=== PATIENT | male | born 2000 | race Caucasian/White ===

== ENCOUNTER 2020-08-16 21:57 | Inpatient (IN) ==
[2020-08-16] MEDS ORDERED: SODIUM CHLORIDE 0.9% 1,000 ML IV STA (22:32)
[2020-08-16] MEDS ORDERED: ONDANSETRON 4 MG/2 ML VIAL IV ONE ×2 (22:38→23:35)
[2020-08-16] MEDS ORDERED: KETOROLAC 30 MG/1 ML VIAL IV STA (22:38)
[2020-08-16 23:21] LABS: Albumin 4.3 G/DL (3.4-5.0); Bilirubin,Total 1.1 MG/DL (0.2-1.0); Calcium 8.3 MG/DL (8.5-10.1); Osmolality,Calculated 275.5 MOS/KG (273-304); Potassium 3.4 MMOL/L (3.5-5.1); Total Protein 7.8 G/DL (6.4-8.2)
[2020-08-16 23:24] LABS: Basophils % 0.2 % (0.0-0.8); Eosinophils # 0.1 10*3/uL (0.0-0.87); Eosinophils % 0.5 % (0.00-10.9); Hematocrit 45.9 VOL% (42.0-52.0); Hemoglobin 16.1 GM/DL (14.0-18.0); Immature Granulocytes % 0.4 %; Immature Granulocytes Absolute 0.06 #; Lymphocytes # 1.5 10*3/uL (1.4-4.0); Lymphocytes % 10.7 % (21.2-54.2); Mean Corpuscular HGB Conc 35.1 GM/DL (32-36); Mean Corpuscular Volume 93.5 FL (87-102); Mean Platelet Volume 9.7 FL (9.6-12.0); Monocytes % 6.2 % (1.7-12.7); Platelet Count 233 T/CUMM (130-400); Red Blood Count 4.91 MC/CUMM (3.8-5.5); Red Cell Distribution Width 11.2 % (9.3-17.3); White Blood Count 13.7 T/CUMM (4-12)
[2020-08-16] MEDS ORDERED: MORPHINE 4 MG/1 ML VIAL IV STA (23:35)
[2020-08-17] MEDS ORDERED: DEXTROSE 50% 25 GM/50 ML VIAL IV PRN (00:06)
[2020-08-17] MEDS ORDERED: ONDANSETRON 4 MG/2 ML VIAL IV PRN (00:06)
[2020-08-17] MEDS ORDERED: SODIUM CHLORIDE 0.9% 1,000 ML IV STA (00:06)
[2020-08-17] MEDS ORDERED: NICOTINE 21 MG/24 HR PATCH TRANSDERM PRN (00:06)
[2020-08-17] MEDS ORDERED: ACETAMINOPHEN 325 MG TABLET PO PRN (00:06)
[2020-08-17] MEDS ORDERED: MORPHINE 4 MG/1 ML VIAL IV PRN (00:06)
[2020-08-17] MEDS ORDERED: GLUCAGON 1 MG VIAL IM PRN (00:06)
[2020-08-17 00:28] LABS: Risk Ratio 3.12; VLDL CHOLESTEROL 98.2 MG/DL
[2020-08-17] MEDS ORDERED: SODIUM CHLORIDE 0.9% 1,000 ML IV SCH (00:30)
[2020-08-17] MEDS ORDERED: PIPERACILLIN/TAZOBACTAM 3,375 MG in SODIUM CHLORIDE 0.9% 100 ML IV STA (00:54)
[2020-08-17] MEDS ORDERED: PANTOPRAZOLE 40 MG VIAL IV STA (01:07)
[2020-08-17] MEDS ORDERED: HYDROmorphone 2 MG/1 ML VIAL IV STA (01:07)
[2020-08-17] MEDS ORDERED: PROMETHAZINE 25 MG/1 ML VIAL IM STA (01:07)
[2020-08-17] MEDS: HYDROmorphone 2 MG/1 ML VIAL IV PRN ×9 (03:53→22:28)
[2020-08-17] MEDS ORDERED: HYDROmorphone 2 MG/1 ML VIAL IV SCH (04:00)
[2020-08-17] MEDS ORDERED: HYDROmorphone 2 MG/1 ML VIAL IV PRN (08:25)
[2020-08-17] MEDS: PIPERACILLIN/TAZOBACTAM 3,375 MG in SODIUM CHLORIDE 0.9% 100 ML IV SCH ×2 (10:15→17:26)
[2020-08-17] MEDS: SODIUM CHLORIDE 0.9% 1,000 ML IV SCH (10:23)
[2020-08-17 10:46] LABS: Basophils % 0.1 % (0.0-0.8); Eosinophils % 0.2 % (0.00-10.9); Hematocrit 40.9 VOL% (42.0-52.0); Hemoglobin 14.4 GM/DL (14.0-18.0); Immature Granulocytes % 0.6 %; Immature Granulocytes Absolute 0.09 #; Lymphocytes # 0.8 10*3/uL (1.4-4.0); Lymphocytes % 4.8 % (21.2-54.2); Mean Corpuscular HGB Conc 35.2 GM/DL (32-36); Mean Corpuscular Volume 94.5 FL (87-102); Mean Platelet Volume 9.5 FL (9.6-12.0); Monocytes % 6.9 % (1.7-12.7); Neutrophils % 87.4 % (38.7-73.9); Platelet Count 182 T/CUMM (130-400); Red Blood Count 4.33 MC/CUMM (3.8-5.5); Red Cell Distribution Width 11.1 % (9.3-17.3); White Blood Count 15.7 T/CUMM (4-12)
[2020-08-17 11:07] LABS: Lymphocytes 2 % (20-55); Platelet Estimate Adequate; Segmented Neutrophils 95 % (50-85); Total Cells Counted 100
[2020-08-17 11:14] LABS: Albumin 3.6 G/DL (3.4-5.0); Bilirubin,Total 4.6 MG/DL (0.2-1.0); Calcium 7.9 MG/DL (8.5-10.1); Osmolality,Calculated 271.7 MOS/KG (273-304); Potassium 3.8 MMOL/L (3.5-5.1); Total Protein 6.6 G/DL (6.4-8.2)
[2020-08-17] MEDS: THIAMINE INJ 100 MG, FOLIC ACID INJ 1 MG, MAGNESIUM SULF INJ 2 GM, MULTIVITAMIN INJ 10 ... IV SCH (12:48)
[2020-08-17 22:25] LABS: Barbiturates Screen,Urine Negative (Negative); Benzodiazepines Screen,Urine Negative (Negative); Cannabinoid Screen,Urine Positive (Negative); Opiate Screen,Urine Positive (Negative); Phencyclidine Screen,Urine Negative (Negative)
[2020-08-17] MEDS ORDERED: ALUMINUM/MAGNES/SIMETH MAX STR 30 ML UDCUP PO PRN (23:19)
[2020-08-18] MEDS: PIPERACILLIN/TAZOBACTAM 3,375 MG in SODIUM CHLORIDE 0.9% 100 ML IV SCH ×3 (00:28→22:45)
[2020-08-18] MEDS: HYDROmorphone 2 MG/1 ML VIAL IV PRN ×3 (04:34→23:37)
[2020-08-18] MEDS: SODIUM CHLORIDE 0.9% 1,000 ML IV SCH ×4 (04:36→21:48)
[2020-08-18 05:55] LABS: Basophils % 0.2 % (0.0-0.8); Eosinophils # 0.3 10*3/uL (0.0-0.87); Eosinophils % 2.7 % (0.00-10.9); Hematocrit 37.5 VOL% (42.0-52.0); Hemoglobin 13.7 GM/DL (14.0-18.0); Immature Granulocytes % 0.3 %; Immature Granulocytes Absolute 0.04 #; Lymphocytes # 1.8 10*3/uL (1.4-4.0); Lymphocytes % 14.3 % (21.2-54.2); Mean Corpuscular HGB Conc 36.5 GM/DL (32-36); Mean Corpuscular Volume 91.7 FL (87-102); Mean Platelet Volume 10.4 FL (9.6-12.0); Monocytes % 6.7 % (1.7-12.7); Neutrophils % 75.8 % (38.7-73.9); Platelet Count 144 T/CUMM (130-400); Red Blood Count 4.09 MC/CUMM (3.8-5.5); Red Cell Distribution Width 11.2 % (9.3-17.3); White Blood Count 12.6 T/CUMM (4-12)
[2020-08-18 06:22] LABS: Bilirubin,Total 3.8 MG/DL (0.2-1.0); Calcium 8.2 MG/DL (8.5-10.1); Osmolality,Calculated 263.2 MOS/KG (273-304); Potassium 3.5 MMOL/L (3.5-5.1); Total Protein 6.1 G/DL (6.4-8.2)
[2020-08-18] MEDS: THIAMINE INJ 100 MG, FOLIC ACID INJ 1 MG, MAGNESIUM SULF INJ 2 GM, MULTIVITAMIN INJ 10 ... IV SCH (16:12)
[2020-08-19] MEDS: PIPERACILLIN/TAZOBACTAM 3,375 MG in SODIUM CHLORIDE 0.9% 100 ML IV SCH ×2 (04:43→06:15)
[2020-08-19 05:20] LABS: Basophils % 0.4 % (0.0-0.8); Eosinophils # 0.4 10*3/uL (0.0-0.87); Hematocrit 32.8 VOL% (42.0-52.0); Immature Granulocytes % 0.5 %; Immature Granulocytes Absolute 0.04 #; Lymphocytes # 2.1 10*3/uL (1.4-4.0); Lymphocytes % 27.7 % (21.2-54.2); Mean Corpuscular HGB Conc 36.6 GM/DL (32-36); Mean Corpuscular Volume 92.1 FL (87-102); Mean Platelet Volume 10.2 FL (9.6-12.0); Monocytes % 7.3 % (1.7-12.7); Neutrophils % 59.1 % (38.7-73.9); Platelet Count 134 T/CUMM (130-400); Red Blood Count 3.56 MC/CUMM (3.8-5.5); Red Cell Distribution Width 11.2 % (9.3-17.3); White Blood Count 7.4 T/CUMM (4-12)
[2020-08-19 05:59] LABS: Albumin 2.8 G/DL (3.4-5.0); Bilirubin,Total 1.9 MG/DL (0.2-1.0); Calcium 7.8 MG/DL (8.5-10.1); Osmolality,Calculated 275.5 MOS/KG (273-304); Total Protein 5.8 G/DL (6.4-8.2)
[2020-08-19] MEDS: SODIUM CHLORIDE 0.9% 1,000 ML IV SCH (06:12)
[2020-08-19 08:04] VITALS: BP 136/84
== END 2020-08-19 11:09 | disposition home or self-care (01) | DRG 439 ==
LOC: N.ED 21:57 → N.EDINP 08-17 00:06 → N.5E 08-17 01:40
PROVIDERS: ADMIT Internal Medicine; ATTEND Internal Medicine

== ENCOUNTER 2022-03-06 09:59 | Inpatient (IN) ==
[2022-03-06] MEDS ORDERED: ONDANSETRON 4 MG/2 ML VIAL IV ONE (10:06)
[2022-03-06] MEDS ORDERED: SODIUM CHLORIDE 0.9% 1,000 ML IV STA (10:06)
[2022-03-06] MEDS ORDERED: MORPHINE 2 MG/1 ML SYRINGE IV STA (10:06)
[2022-03-06] MEDS ORDERED: LORazepam 2 MG/1 ML VIAL IV STA (10:06)
[2022-03-06] MEDS ORDERED: PANTOPRAZOLE 40 MG VIAL IV STA (10:06)
[2022-03-06 10:30] LABS: Basophils % 0.2 % (0.0-0.8); Hematocrit 45.9 VOL% (42.0-52.0); Hemoglobin 16.1 GM/DL (14.0-18.0); Immature Granulocytes % 0.3 %; Immature Granulocytes Absolute 0.04 #; Lymphocytes % 7.4 % (21.2-54.2); Mean Corpuscular HGB Conc 35.1 GM/DL (32-36); Mean Corpuscular Volume 93.7 FL (87-102); Mean Platelet Volume 9.7 FL (9.6-12.0); Monocytes # 0.9 10*3/uL (0.11-0.8); Monocytes % 6.5 % (1.7-12.7); Neutrophils % 85.6 % (38.7-73.9); Platelet Count 269 T/CUMM (130-400); Red Cell Distribution Width 12.5 % (9.3-17.3)
[2022-03-06 10:41] LABS: INR 0.9; PT Patient Result 10.5 SECS (10.1-12.1)
[2022-03-06 10:50] LABS: Alanine Aminotransferase 105 U/L (16-61); Albumin 4.6 G/DL (3.4-5.0); Alkaline Phosphatase 79 U/L (45-117); Aspartate Amino Transferase 121 U/L (0-37); Blood Urea Nitrogen 11 MG/DL (7-18); Calcium 9.8 MG/DL (8.5-10.1); Carbon Dioxide 27 MMOL/L (21-32); Chloride 96 MMOL/L (98-107); Glucose 98 MG/DL (74-106); Osmolality,Calculated 271.8 MOS/KG (273-304); Potassium 3.3 MMOL/L (3.5-5.1); Sodium 137 MMOL/L (136-145); Total Protein 7.9 G/DL (6.4-8.2)
[2022-03-06 11:59] LABS: Barbiturates Screen,Urine Negative (Negative); Benzodiazepines Screen,Urine Negative (Negative); Cannabinoid Screen,Urine Positive (Negative); Opiate Screen,Urine Positive (Negative); Phencyclidine Screen,Urine Negative (Negative)
[2022-03-06] MEDS ORDERED: MORPHINE 2 MG/1 ML SYRINGE IV ONE (12:26)
[2022-03-06] MEDS ORDERED: NICOTINE 21 MG/24 HR PATCH TRANSDERM PRN (13:00)
[2022-03-06] MEDS ORDERED: MAGNESIUM SULF RIDER 4 GM/100 ML PREMIX IV PRN (13:03)
[2022-03-06] MEDS ORDERED: MAGNESIUM SULF RIDER 2 GM/50 ML PREMIX IV PRN (13:03)
[2022-03-06] MEDS ORDERED: PANTOPRAZOLE INJ 200 MG in SODIUM CHLORIDE 0.9% 250 ML IV SCH (14:00)
[2022-03-06] MEDS: LACTATED RINGERS 1,000 ML IV SCH ×2 (14:34→19:35)
[2022-03-06 15:06] LABS: Hematocrit 42.9 VOL% (42.0-52.0); Hemoglobin 14.6 GM/DL (14.0-18.0)
[2022-03-06] MEDS: THIAMINE 200 MG/2 ML VIAL IV SCH (15:29)
[2022-03-06] MEDS: FOLIC ACID 1 MG TABLET PO SCH (15:30)
[2022-03-06] MEDS: MULTIVITAMIN (CENTRUM) TABLET PO SCH (15:30)
[2022-03-06] MEDS ORDERED: INFLUENZA VIRUS VACCINE 0.5 ML SYRINGE IM ONE (16:53)
[2022-03-06] MEDS: HYDROmorphone 1 MG/1 ML SYRINGE IV PRN ×2 (17:16→20:30)
[2022-03-06] MEDS: PANTOPRAZOLE 40 MG VIAL IV SCH (20:32)
[2022-03-06 21:41] LABS: Hematocrit 39.2 VOL% (42.0-52.0); Hemoglobin 13.5 GM/DL (14.0-18.0)
[2022-03-06] MEDS: ONDANSETRON 4 MG/2 ML VIAL IV PRN (21:52)
[2022-03-07] MEDS: HYDROmorphone 1 MG/1 ML SYRINGE IV PRN ×6 (00:06→20:34)
[2022-03-07] MEDS: LACTATED RINGERS 1,000 ML IV SCH ×4 (00:07→18:54)
[2022-03-07] MEDS: ONDANSETRON 4 MG/2 ML VIAL IV PRN ×2 (03:39→08:30)
[2022-03-07 07:22] LABS: Basophils % 0.2 % (0.0-0.8); Eosinophils # 0.1 10*3/uL (0.0-0.87); Eosinophils % 0.6 % (0.00-10.9); Hematocrit 40.9 VOL% (42.0-52.0); Hemoglobin 14.1 GM/DL (14.0-18.0); Immature Granulocytes % 0.4 %; Immature Granulocytes Absolute 0.03 #; Lymphocytes % 12.3 % (21.2-54.2); Mean Corpuscular HGB Conc 34.5 GM/DL (32-36); Mean Corpuscular Volume 95.1 FL (87-102); Mean Platelet Volume 10.2 FL (9.6-12.0); Monocytes # 0.6 10*3/uL (0.11-0.8); Monocytes % 7.7 % (1.7-12.7); Neutrophils % 78.8 % (38.7-73.9); Platelet Count 160 T/CUMM (130-400); Red Cell Distribution Width 12.6 % (9.3-17.3); White Blood Count 8.2 T/CUMM (4-12)
[2022-03-07 07:40] LABS: Albumin 3.7 G/DL (3.4-5.0); Bilirubin,Total 1.8 MG/DL (0.20-1.00); Calcium 9.1 MG/DL (8.5-10.1); Potassium 3.1 MMOL/L (3.5-5.1); Risk Ratio 1.4; VLDL Cholesterol 10.8 MG/DL
[2022-03-07] MEDS: MULTIVITAMIN (CENTRUM) TABLET PO SCH (10:01)
[2022-03-07] MEDS: FOLIC ACID 1 MG TABLET PO SCH (10:01)
[2022-03-07] MEDS: PANTOPRAZOLE 40 MG VIAL IV SCH ×2 (10:01→20:35)
[2022-03-07] MEDS: THIAMINE 200 MG/2 ML VIAL IV SCH (10:04)
[2022-03-07] MEDS: POTASSIUM CHLORIDE RIDER 10 MEQ/100 ML PREMIX IV PRN ×4 (10:34→16:50)
[2022-03-07] MEDS ORDERED: MAGNESIUM SULF RIDER 2 GM/50 ML PREMIX IV ONE (15:00)
[2022-03-07] MEDS: chlordiazePOXIDE 25 MG CAPSULE PO SCH ×2 (15:14→20:35)
[2022-03-08] MEDS: LACTATED RINGERS 1,000 ML IV SCH ×4 (02:00→21:04)
[2022-03-08] MEDS: DIAZEPAM 10 MG/2 ML SYRINGE IV PRN ×2 (02:21→16:19)
[2022-03-08] MEDS: HYDROmorphone 1 MG/1 ML SYRINGE IV PRN ×2 (04:01→19:27)
[2022-03-08 04:04] LABS: Basophils # 0.1 10*3/uL (0.0-0.2); Basophils % 0.6 % (0.0-0.8); Eosinophils # 0.1 10*3/uL (0.0-0.87); Eosinophils % 1.3 % (0.00-10.9); Hematocrit 46.2 VOL% (42.0-52.0); Immature Granulocytes % 0.5 %; Immature Granulocytes Absolute 0.05 #; Lymphocytes # 1.9 10*3/uL (1.4-4.0); Lymphocytes % 17.8 % (21.2-54.2); Mean Corpuscular HGB Conc 34.6 GM/DL (32-36); Mean Corpuscular Volume 95.9 FL (87-102); Mean Platelet Volume 10.1 FL (9.6-12.0); Monocytes % 8.8 % (1.7-12.7); Platelet Count 237 T/CUMM (130-400); Red Blood Count 4.82 MC/CUMM (3.8-5.5); Red Cell Distribution Width 12.2 % (9.3-17.3); White Blood Count 10.8 T/CUMM (4-12)
[2022-03-08 04:26] LABS: Albumin 4.3 G/DL (3.4-5.0); Calcium 9.5 MG/DL (8.5-10.1); Osmolality,Calculated 270.8 MOS/KG (273-304); Potassium 3.3 MMOL/L (3.5-5.1); Total Protein 8.2 G/DL (6.4-8.2)
[2022-03-08] MEDS ORDERED: DIAZEPAM 10 MG/2 ML SYRINGE IV ONE ×4 (04:35→17:29)
[2022-03-08] MEDS: FOLIC ACID 1 MG TABLET PO SCH (08:10)
[2022-03-08] MEDS: MULTIVITAMIN (CENTRUM) TABLET PO SCH (08:15)
[2022-03-08] MEDS: LORazepam 2 MG/1 ML VIAL IV SCH ×4 (08:25→20:43)
[2022-03-08] MEDS: PANTOPRAZOLE 40 MG VIAL IV SCH ×2 (08:25→21:03)
[2022-03-08] MEDS: chlordiazePOXIDE 25 MG CAPSULE PO SCH ×3 (08:29→16:20)
[2022-03-08] MEDS: THIAMINE 200 MG/2 ML VIAL IV SCH ×2 (08:29→21:04)
[2022-03-08] MEDS ORDERED: MIDAZOLAM 2 MG/2 ML VIAL ONE (14:25)
[2022-03-08] MEDS ORDERED: propofoL 200 MG/20 ML VIAL IV ONE (14:32)
[2022-03-08] MEDS ORDERED: LIDOCAINE 2% 5 ML VIAL ONE (14:32)
[2022-03-08] MEDS ORDERED: DIAZEPAM 10 MG/2 ML SYRINGE IV PRN (16:13)
[2022-03-08] MEDS ORDERED: HALOPERIDOL 5 MG/ML AMP IM ONE (17:05)
[2022-03-08] MEDS ORDERED: ZIPRASIDONE 20 MG/1 ML VIAL IM ONE (17:06)
[2022-03-08] MEDS ORDERED: ETOMIDATE 20 MG/10 ML VIAL IV ONE (17:21)
[2022-03-08] MEDS ORDERED: SUCCINYLCHOLINE 200 MG/10 ML VIAL ONE (17:22)
[2022-03-08] MEDS ORDERED: PHENobarbital 130 MG/1 ML VIAL IV ONE ×2 (17:28→18:19)
[2022-03-08] MEDS: DEXMEDETOMIDINE 400 MCG in SODIUM CHLORIDE 0.9% 96 ML IV PRN (19:28)
[2022-03-09] MEDS: LORazepam 2 MG/1 ML VIAL IV SCH ×6 (00:23→19:50)
[2022-03-09] MEDS: LACTATED RINGERS 1,000 ML IV SCH ×2 (03:32→17:07)
[2022-03-09] MEDS: DEXMEDETOMIDINE 400 MCG in SODIUM CHLORIDE 0.9% 96 ML IV PRN ×2 (03:32→14:51)
[2022-03-09 05:40] LABS: Basophils % 0.5 % (0.0-0.8); Eosinophils # 0.2 10*3/uL (0.0-0.87); Hematocrit 40.1 VOL% (42.0-52.0); Hemoglobin 13.4 GM/DL (14.0-18.0); Immature Granulocytes % 0.4 %; Immature Granulocytes Absolute 0.02 #; Lymphocytes # 1.4 10*3/uL (1.4-4.0); Lymphocytes % 26.1 % (21.2-54.2); Mean Corpuscular HGB Conc 33.4 GM/DL (32-36); Mean Platelet Volume 10.1 FL (9.6-12.0); Monocytes # 0.8 10*3/uL (0.11-0.8); Platelet Count 120 T/CUMM (130-400); Red Blood Count 4.01 MC/CUMM (3.8-5.5); Red Cell Distribution Width 12.4 % (9.3-17.3); White Blood Count 5.5 T/CUMM (4-12)
[2022-03-09 05:59] LABS: Bilirubin,Total 0.6 MG/DL (0.20-1.00); Calcium 8.8 MG/DL (8.5-10.1); Osmolality,Calculated 283.8 MOS/KG (273-304); Potassium 3.5 MMOL/L (3.5-5.1); Total Protein 6.2 G/DL (6.4-8.2)
[2022-03-09] MEDS: THIAMINE 200 MG/2 ML VIAL IV SCH ×2 (08:22→21:15)
[2022-03-09] MEDS: PANTOPRAZOLE 40 MG VIAL IV SCH ×2 (08:22→21:13)
[2022-03-10] MEDS: HYDROmorphone 1 MG/1 ML SYRINGE IV PRN ×5 (00:10→20:37)
[2022-03-10] MEDS: ONDANSETRON 4 MG/2 ML VIAL IV PRN (00:12)
[2022-03-10] MEDS: LACTATED RINGERS 1,000 ML IV SCH ×2 (00:19→20:13)
[2022-03-10] MEDS: LORazepam 2 MG/1 ML VIAL IV SCH ×3 (00:48→07:46)
[2022-03-10] MEDS ORDERED: HYDROmorphone 1 MG/1 ML SYRINGE IV ONE (01:35)
[2022-03-10 04:40] LABS: Basophils % 0.9 % (0.0-0.8); Eosinophils # 0.2 10*3/uL (0.0-0.87); Eosinophils % 4.2 % (0.00-10.9); Hematocrit 35.5 VOL% (42.0-52.0); Hemoglobin 12.3 GM/DL (14.0-18.0); Immature Granulocytes % 0.2 %; Immature Granulocytes Absolute 0.01 #; Lymphocytes # 1.4 10*3/uL (1.4-4.0); Lymphocytes % 30.2 % (21.2-54.2); Mean Corpuscular HGB Conc 34.6 GM/DL (32-36); Mean Corpuscular Volume 96.2 FL (87-102); Mean Platelet Volume 9.9 FL (9.6-12.0); Monocytes # 0.5 10*3/uL (0.11-0.8); Monocytes % 10.3 % (1.7-12.7); Neutrophils % 54.2 % (38.7-73.9); Platelet Count 132 T/CUMM (130-400); Red Blood Count 3.69 MC/CUMM (3.8-5.5); Red Cell Distribution Width 12.1 % (9.3-17.3); White Blood Count 4.6 T/CUMM (4-12)
[2022-03-10 04:57] LABS: Albumin 2.7 G/DL (3.4-5.0); Bilirubin,Total 0.4 MG/DL (0.20-1.00); Osmolality,Calculated 280.1 MOS/KG (273-304); Potassium 3.1 MMOL/L (3.5-5.1); Total Protein 5.7 G/DL (6.4-8.2)
[2022-03-10] MEDS: POTASSIUM CHLORIDE RIDER 10 MEQ/100 ML PREMIX IV PRN (07:47)
[2022-03-10] MEDS: PANTOPRAZOLE 40 MG VIAL IV SCH ×2 (08:00→20:13)
[2022-03-10] MEDS: THIAMINE 200 MG/2 ML VIAL IV SCH (08:00)
[2022-03-10] MEDS: POTASSIUM BICARB EFFERVESCENT 20 MEQ TAB.EFF PO SCH ×3 (08:27→15:49)
[2022-03-10] MEDS ORDERED: DIAZEPAM 10 MG/2 ML SYRINGE IM PRN (10:48)
[2022-03-10] MEDS: LORazepam 1 MG TABLET PO SCH ×3 (11:45→20:13)
[2022-03-11] MEDS: LORazepam 1 MG TABLET PO SCH ×6 (00:22→19:50)
[2022-03-11] MEDS: HYDROmorphone 1 MG/1 ML SYRINGE IV PRN ×6 (00:22→22:46)
[2022-03-11 05:18] LABS: Calcium 8.6 MG/DL (8.5-10.1); Osmolality,Calculated 278.3 MOS/KG (273-304); Potassium 3.4 MMOL/L (3.5-5.1)
[2022-03-11] MEDS: POTASSIUM CHLORIDE 20 MEQ TABLET PO PRN ×3 (08:47→15:59)
[2022-03-11] MEDS: PANTOPRAZOLE 40 MG TABLET PO SCH ×2 (08:47→21:06)
[2022-03-11] MEDS: ONDANSETRON 4 MG/2 ML VIAL IV PRN ×2 (08:55→11:59)
[2022-03-11] MEDS: LACTATED RINGERS 1,000 ML IV SCH (16:00)
[2022-03-11 16:44] VITALS: BP 110/65
[2022-03-12] MEDS: LORazepam 1 MG TABLET PO SCH ×7 (00:10→23:29)
[2022-03-12] MEDS: HYDROmorphone 1 MG/1 ML SYRINGE IV PRN (03:49)
[2022-03-12] MEDS: LACTATED RINGERS 1,000 ML IV SCH (04:49)
[2022-03-12 05:12] LABS: Calcium 8.8 MG/DL (8.5-10.1); Osmolality,Calculated 279.3 MOS/KG (273-304); Potassium 3.7 MMOL/L (3.5-5.1)
[2022-03-12] MEDS: oxyCODONE/ACETAMINOPHEN 5-325 MG TABLET PO PRN ×4 (07:43→19:39)
[2022-03-12] MEDS: PANTOPRAZOLE 40 MG TABLET PO SCH ×2 (10:03→21:25)
[2022-03-12] MEDS ORDERED: ZALEPLON 5 MG CAPSULE PO PRN (19:21)
[2022-03-13] MEDS: LORazepam 1 MG TABLET PO SCH ×2 (03:29→06:34)
[2022-03-13 05:00] LABS: Calcium 8.5 MG/DL (8.5-10.1); Osmolality,Calculated 282.1 MOS/KG (273-304); Potassium 3.7 MMOL/L (3.5-5.1)
[2022-03-13] MEDS: oxyCODONE/ACETAMINOPHEN 5-325 MG TABLET PO PRN (06:34)
== END 2022-03-13 09:15 | disposition home or self-care (01) | DRG 439 ==
LOC: N.ED 09:59 → N.5E 13:00 → SUATTDRO 13:00 → N.5E 16:10 → N.ICU 03-08 07:49
PROVIDERS: ADMIT Emergency Medicine; ATTEND Internal Medicine

== ENCOUNTER 2022-06-27 07:25 | Inpatient (IN) ==
[2022-06-27 07:39] LABS: Basophils % 0.4 % (0.0-0.8); Eosinophils # 0.1 10*3/uL (0.0-0.87); Eosinophils % 0.8 % (0.00-10.9); Hematocrit 40.3 VOL% (42.0-52.0); Hemoglobin 13.1 GM/DL (14.0-18.0); Immature Granulocytes % 0.8 %; Immature Granulocytes Absolute 0.08 #; Lymphocytes # 1.3 10*3/uL (1.4-4.0); Lymphocytes % 12.1 % (21.2-54.2); Mean Corpuscular HGB Conc 32.5 GM/DL (32-36); Mean Corpuscular Volume 99.8 FL (87-102); Mean Platelet Volume 10.1 FL (9.6-12.0); Monocytes # 0.6 10*3/uL (0.11-0.8); Monocytes % 5.6 % (1.7-12.7); Neutrophils % 80.3 % (38.7-73.9); Platelet Count 222 T/CUMM (130-400); Red Blood Count 4.04 MC/CUMM (3.8-5.5); Red Cell Distribution Width 11.1 % (9.3-17.3)
[2022-06-27] MEDS ORDERED: SODIUM CHLORIDE 0.9% 1,000 ML IV STA (07:48)
[2022-06-27 08:10] LABS: Alanine Aminotransferase 27 U/L (16-61); Albumin 4.3 G/DL (3.4-5.0); Alkaline Phosphatase 89 U/L (45-117); Aspartate Amino Transferase 23 U/L (0-37); Blood Urea Nitrogen 14 MG/DL (7-18); Calcium 9.3 MG/DL (8.5-10.1); Carbon Dioxide 10 MMOL/L (21-32); Chloride 109 MMOL/L (98-107); Sodium 143 MMOL/L (136-145); Total Protein 7.1 G/DL (6.4-8.2)
[2022-06-27 08:38] LABS: Barbiturates Screen,Urine Negative (Negative); Benzodiazepines Screen,Urine Positive (Negative); Cannabinoid Screen,Urine Positive (Negative); Opiate Screen,Urine Negative (Negative); Phencyclidine Screen,Urine Negative (Negative)
[2022-06-27 08:45] LABS: Glucose 169 MG/DL (74-106)
[2022-06-27] MEDS ORDERED: THIAMINE INJ 100 MG, FOLIC ACID INJ 1 MG, MAGNESIUM SULF INJ 2 GM, MULTIVITAMIN INJ 10 ... IV ONE (10:45)
[2022-06-27] MEDS ORDERED: LORazepam 2 MG/1 ML VIAL IV STA (10:58)
[2022-06-27 11:10] LABS: Arterial Base Excess iSTAT -2 MMOL/L (-2.5-2.5); Arterial Bicarbonate iSTAT 22.5 MMOL/L (20-26); Arterial O2 Saturation iSTAT 99 % (95-100); Arterial PCO2 iSTAT 36 MM HG (35-48); Arterial PO2 iSTAT 132 MM HG (80-95); Arterial Total CO2 iSTAT 24 MMO/L (23-27); Arterial pH iSTAT 7.405 (7.35-7.45)
[2022-06-27] MEDS ORDERED: ALBUTEROL 2.5 MG/3 ML NEB RESP TX PRN (12:12)
[2022-06-27] MEDS ORDERED: LACTATED RINGERS 1,000 ML IV SCH (14:00)
[2022-06-27] MEDS: oxyCODONE/ACETAMINOPHEN 5-325 MG TABLET PO PRN ×2 (14:06→19:32)
[2022-06-27] MEDS: DIAZEPAM 5 MG TABLET PO SCH ×2 (14:21→20:09)
[2022-06-27 14:47] LABS: Calcium 7.8 MG/DL (8.5-10.1); Osmolality,Calculated 286.7 MOS/KG (273-304); Potassium 3.2 MMOL/L (3.5-5.1)
[2022-06-27] MEDS: LORazepam 2 MG/1 ML VIAL IV PRN ×2 (14:48→21:50)
[2022-06-27 19:00] VITALS: BP 99/65
[2022-06-27] MEDS ORDERED: NICOTINE 21 MG/24 HR PATCH TRANSDERM PRN (21:38)
[2022-06-28 05:35] LABS: Basophils % 0.2 % (0.0-0.8); Eosinophils # 0.3 10*3/uL (0.0-0.87); Eosinophils % 3.4 % (0.00-10.9); Hematocrit 33.7 VOL% (42.0-52.0); Hemoglobin 11.5 GM/DL (14.0-18.0); Immature Granulocytes % 0.5 %; Immature Granulocytes Absolute 0.04 #; Lymphocytes # 1.7 10*3/uL (1.4-4.0); Lymphocytes % 20.7 % (21.2-54.2); Mean Corpuscular HGB Conc 34.1 GM/DL (32-36); Mean Corpuscular Volume 94.1 FL (87-102); Monocytes # 0.6 10*3/uL (0.11-0.8); Monocytes % 6.5 % (1.7-12.7); Neutrophils % 68.7 % (38.7-73.9); Platelet Count 152 T/CUMM (130-400); Red Blood Count 3.58 MC/CUMM (3.8-5.5); Red Cell Distribution Width 11.1 % (9.3-17.3); White Blood Count 8.42 T/CUMM (4-12)
[2022-06-28] MEDS: oxyCODONE/ACETAMINOPHEN 5-325 MG TABLET PO PRN (05:56)
[2022-06-28 06:45] LABS: Albumin 3.1 G/DL (3.4-5.0); Bilirubin,Total 0.9 MG/DL (0.20-1.00); Calcium 7.6 MG/DL (8.5-10.1); Osmolality,Calculated 277.3 MOS/KG (273-304); Potassium 3.3 MMOL/L (3.5-5.1); Risk Ratio 1.69; Thyroid Stimulating Hormone 1.11 uIU/ml (0.358-3.74); Total Protein 5.7 G/DL (6.4-8.2); VLDL Cholesterol 22.8 MG/DL
[2022-06-28] MEDS ORDERED: PANTOPRAZOLE 40 MG TABLET PO SCH (09:00)
[2022-06-28] MEDS: DIAZEPAM 5 MG TABLET PO SCH (10:19)
== END 2022-06-28 10:12 | disposition home or self-care (01) | DRG 897 ==
LOC: N.ED 07:25 → N.ICU 12:57
PROVIDERS: ADMIT Internal Medicine; ATTEND Internal Medicine